=== PATIENT | male | born 1955 | race African-American/Black ===

== ENCOUNTER 2019-12-05 09:15 | Emergency (ER) | payer MEDICARE, OTHER ==
[~2019-12-05] VITALS: Ht 182.9 cm; Wt 117.5 kg
[~2019-12-05 09:15] MED LIST: ASPIRIN81 M1 PO; COLACE100 MG PO; FLOMAX0.4 MG PO; IBUPROFEN800 MG PO; VICODIN 5-5001 EACH PO
[2019-12-05 09:32] VITALS: BP 175/92
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
[2019-12-05] MEDS ORDERED: IBUPROFEN800 MG PO (10:51)
[2019-12-05 11:00] VITALS: BP 175/92
--- NOTE | 2019-12-05 17:13 | Diagnostic Imaging Report ---
Indication: Pain, trauma Technique: 2 views of the left hip Comparison: none Findings: There is a left hip hemiarthroplasty prosthesis in place. This appears well aligned. No acute fractures. No dislocations. No worrisome periprosthetic lucency. Impression: No acute process This agrees with the preliminary interpretation provided by the emergency room physician
== END 2019-12-05 11:00 | disposition home or self-care (01) ==
LOC: EMR 09:40
DX: S70.02XA Contusion of left hip, initial encounter (principal); V43.52XA Car driver injured in collision with other type car in traffic accident, initial encounter; Y92.410 Unspecified street and highway as the place of occurrence of the external cause; E11.9 Type 2 diabetes mellitus without complications; Z96.642 Presence of left artificial hip joint
CPT/HCPCS: 73502; 99283